=== PATIENT | female | born 1955 | race Caucasian/White ===

== ENCOUNTER 2018-04-24 15:18 | Emergency (ER) | payer BC ==
[~2018-04-24] VITALS: Ht 172.7 cm; Wt 72.6 kg
[2018-04-24] MEDS ORDERED: AMLODIPINE BESY10 MG PO (15:32)
[2018-04-24] MEDS ORDERED: NORCO 5-325 TA1 EACH PO (15:32)
== END 2018-04-24 16:02 | disposition home or self-care (01) ==
LOC: ED 15:18
DX: R09.89 Other specified symptoms and signs involving the circulatory and respiratory systems (principal); Z79.899 Other long term (current) drug therapy; Z79.891 Long term (current) use of opiate analgesic
CPT/HCPCS: 99283